=== PATIENT | female | born 1985 | race Caucasian/White ===

== ENCOUNTER 2022-05-29 02:59 | Emergency (ER) | payer MEDICAID, MEDICARE, OTHER ==
[~2022-05-29] VITALS: Ht 172.7 cm; Wt 131.0 kg
--- NOTE | 2022-05-29 03:10 | ED Integumentary General ---
General Stated Complaint: BITE ON LOWER BACK History of Present Illness Date Seen by Provider: May 29, 2022 Time Seen by Provider: 03:10 Initial Comments Patient is here with complaints of possible bites to her lower back. Patient feels that the area is painful and mildly swollen with a burning sensation. Patient showed me a photograph on her phone on how the lesion looked in the morning. In the picture lesion is vesicular in nature. Patient states she broke open all the vesicles and now has burning pain in that area which was hindering her sleep. Denies fever and chills, recent URI. Patient has a history of chickenpox when she was younger. Allergies and Home Medications Patient Home Medication List Home Medication List Reviewed: Yes Review of Systems Review of Systems Constitutional: no symptoms reported EENTM: no symptoms reported Respiratory: no symptoms reported Cardiovascular: no symptoms reported Gastrointestinal: no symptoms reported Genitourinary: no symptoms reported Musculoskeletal: no symptoms reported Skin: see HPI, lesions Psychiatric/Neurological: No Symptoms Reported Endocrine: No Symptoms Reported Physical Exam Vital Signs Capillary Refill : General Appearance: WD/WN, no apparent distress HEENT: PERRL/EOMI, normal ENT inspection Neck: non-tender, full range of motion, supple Cardiovascular: regular rate, rhythm Respiratory: lungs clear Extremities: normal range of motion Neurologic/Psychiatric: 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 Rash on the right side of the lower back within the T11 and T12 dermatome. It is limited to the right side of the spine and not crossing the midline. Patient showed a picture of hyperlipidemia morning and the rash was vesicular in nature, classic for shingles. However patient broke open all the vesicles and now the skin is open where the denuded vesicles have been) Lymphatic: no adenopathy Departure Impression Primary Impression: Herpes zoster Qualified Codes: B02.9 - Zoster without complications Disposition: 01 HOME, SELF-CARE Condition: Stable Departure-Patient Inst. Referrals: NO,LOCAL PHYSICIAN (PCP) Primary Care Physician Patient Instructions: Shingles (DC) Add. Discharge Instructions: - Advised ibuprofen for pain - Follow up with PCP as needed -Prescription for valacyclovir 1 g every 8 hours for 7 days, and acyclovir 5% cream -Contagious until lesions scab over -Follow-up with PCP within the next 7 days Scripts Acyclovir (Acyclovir) 5 % Oint...g. 15 GM TP TID for 7 Days, #1 UNIT Prov: EHSAN MEDINA MD 05/29/22 Valacyclovir HCl (Valacyclovir) 1,000 Mg Tablet 1000 MG PO Q8H for 7 Days, #21 TAB Prov: EHSAN MEDINA MD 05/29/22 EHSAN MEDINA MD May 29, 2022 03:10
[2022-05-29] MEDS ORDERED: VALA10007 PO (03:36)
[2022-05-29] MEDS ORDERED: ACYC15OI6 TP (03:36)
[2022-05-29 03:45] VITALS: BP 148/93
== END 2022-05-29 03:45 | disposition home or self-care (01) ==
LOC: ER 03:05
DX: B02.9 Zoster without complications (principal); Z28.310 Unvaccinated for COVID-19
CPT/HCPCS: 99281

== ENCOUNTER 2022-07-05 10:40 | Observation (INO) | payer MEDICARE ==
[~2022-07-05] VITALS: Ht 172.7 cm; Wt 142.4 kg
[~2022-07-05 10:40] MED LIST: ACYC15OI6 TP; VALA10007 PO
[2022-07-05] MEDS ORDERED: NS IV 1000 ML 1,000 ML IV STA (10:54)
[2022-07-05 11:08] LABS: BASOPHILS # (AUTO) 0.1 10^3/uL (0.0-0.1); BASOPHILS % (AUTO) 1 % (0-10); EOSINOPHILS # (AUTO) 0.2 10^3/uL (0.0-0.3); EOSINOPHILS % (AUTO) 3 % (0-10); HEMATOCRIT 41 % (35-52); HEMOGLOBIN 14.3 g/dL (11.5-16.0); LYMPHOCYTES # (AUTO) 2.1 10^3/uL (1.0-4.0); LYMPHOCYTES % (AUTO) 30 % (12-44); MEAN CORPUSCULAR HEMOGLOBIN 30 pg (25-34); MEAN CORPUSCULAR HGB CONC 35 g/dL (32-36); MEAN CORPUSCULAR VOLUME 84 fL (80-99); MEAN PLATELET VOLUME 9.6 fL (9.0-12.2); MONOCYTES # (AUTO) 0.5 10^3/uL (0.0-1.0); MONOCYTES % (AUTO) 7 % (0-12); NEUTROPHILS % (AUTO) 58 % (42-75); PLATELET COUNT 308 10^3/uL (130-400); WHITE BLOOD COUNT 6.9 10^3/uL (4.3-11.0)
[2022-07-05 11:19] LABS: ALBUMIN 3.5 GM/DL (3.2-4.5); POTASSIUM 4.4 MMOL/L (3.6-5.0)
[2022-07-05 11:20] LABS: CALCIUM 9.2 MG/DL (8.5-10.1)
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
[2022-07-05 11:22] LABS: TOTAL PROTEIN 7.1 GM/DL (6.4-8.2)
[2022-07-05 11:24] LABS: BILIRUBIN,TOTAL 0.6 MG/DL (0.1-1.0)
[2022-07-05 11:25] LABS: CREATININE SERUM 1.24 MG/DL (0.60-1.30)
[2022-07-05 11:57] LABS: BILIRUBIN,URINE NEGATIVE (NEGATIVE); CLARITY,URINE SL CLOUDY; COLOR,URINE YELLOW; GLUCOSE, URINE (UA) 3+ (NEGATIVE); KETONES,URINE NEGATIVE (NEGATIVE); LEUKOCYTE ESTERASE ,URINE NEGATIVE (NEGATIVE); NITRITE,URINE NEGATIVE (NEGATIVE); PH,URINE 5.5 (5-9); PROTEIN,URINE TRACE (NEGATIVE)
[2022-07-05 12:19] LABS: AMORPHOUS SEDIMENT,UR RARE AMOR URATES /LPF; BACTERIA,URINE FEW /HPF; RBC,URINE RARE /HPF; WBC,URINE RARE /HPF; YEAST,URINE FEW /HPF
[2022-07-05] MEDS ORDERED: diphenhydrAMINE 25 MG TAB (BENADRYL) PO PRN (12:45)
[2022-07-05] MEDS ORDERED: diphenhydrAMINE 50 MG/ML INJ (BENADRYL) IVP PRN (12:45)
[2022-07-05] MEDS ORDERED: ANTACID SUSP 30 ML UDC (MYLANTA) PO PRN (12:45)
[2022-07-05] MEDS ORDERED: MILK OF MAGNESIA 400 MG/5 ML 30 ML UDC PO PRN (12:45)
[2022-07-05] MEDS ORDERED: NS IV 500 ML 500 ML IV PRN (12:45)
[2022-07-05] MEDS ORDERED: LACTULOSE SYRUP 10GM/15ML (ENULOSE) 30ML UDC PO PRN (12:45)
[2022-07-05] MEDS ORDERED: MELATONIN 3 MG TABLET PO PRN (12:45)
[2022-07-05] MEDS ORDERED: ONDANSETRON 4 MG/2 ML (SDV) Z0FRAN IV PRN (12:45)
[2022-07-05] MEDS ORDERED: BISACODYL 10 MG SUPP (DULCOLAX) PR PRN (12:45)
[2022-07-05] MEDS ORDERED: ONDANSETRON 4 MG (ZOFRAN) ORAL DISSOLVE TAB PO PRN (12:45)
[2022-07-05] MEDS ORDERED: ACETAMINOPHEN 325 MG TABLET PO PRN (12:45)
[2022-07-05] MEDS ORDERED: polyethylene glycoL POWDER 17 GM (MIRALAX) PACK PO PRN (12:45)
[2022-07-05] MEDS ORDERED: CALCIUM CARBONATE 500 MG (TUMS) TAB.CHEW PO PRN (12:45)
[2022-07-05 12:57] VITALS: BP 169/98
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
[2022-07-05] MEDS: inSUlin ASPART (NovoLOG) 1 UNIT/0.01 ML (CHARGE PER UNIT) SC SCH ×4 (14:15→20:06)
[2022-07-05] MEDS ORDERED: HYDR-3820 PO (14:53)
[2022-07-05] MEDS ORDERED: DULA0.75 SQ (14:53)
[2022-07-05] MEDS ORDERED: CARB15DR OP (14:53)
[2022-07-05] MEDS ORDERED: LOSA100T57 PO (14:53)
[2022-07-05] MEDS ORDERED: TOPI200T8 PO (14:53)
[2022-07-05] MEDS ORDERED: ROSU40TA23 PO (14:53)
[2022-07-05] MEDS ORDERED: BUSP7.5T5 PO (14:53)
[2022-07-05] MEDS ORDERED: ERGO1250 PO (14:53)
[2022-07-05] MEDS ORDERED: EMPA1TAB21 PO (14:53)
[2022-07-05 15:16] VITALS: BP 165/81
[2022-07-05] MEDS ORDERED: EMPAGLIFLOZIN 10 MG TABLET (JARDIANCE) PO ONE (17:15)
[2022-07-05] MEDS ORDERED: amLODIPine 10 MG (NORVASC) TAB PO ONE (17:30)
[2022-07-05] MEDS ORDERED: busPIRone 15 MG (BUSPAR) TABLET PO PRN (17:45)
[2022-07-05] MEDS: metFORMIN 500 MG (GLUCOPHAGE) TAB PO SCH (17:58)
[2022-07-05 19:55] VITALS: BP 173/103
[2022-07-05] MEDS: SENNOSIDES 8.6 MG (SENOKOT) TAB PO SCH (20:06)
[2022-07-05] MEDS: DOCUSATE SODIUM 100 MG (COLACE) CAP PO SCH (20:06)
[2022-07-05] MEDS ORDERED: ROSUVASTATIN 20 MG (CRESTOR) TABLET PO SCH (21:00)
[2022-07-05] MEDS ORDERED: LOSARTAN 100 MG (COZAAR) TABLET PO SCH (21:00)
[2022-07-05] MEDS ORDERED: toPIRamate 100 MG (TOPAMAX) TAB PO SCH (21:00)
[2022-07-06] MEDS ORDERED: KCL 20 MEQ TAB (K-DUR) PO SCH (06:00)
[2022-07-06] MEDS: inSUlin ASPART (NovoLOG) 1 UNIT/0.01 ML (CHARGE PER UNIT) SC SCH ×2 (06:00→11:47)
[2022-07-06] MEDS ORDERED: POTASSIUM BICARB 20 MEQ (EFFER-K) TABLET PO SCH (06:00)
[2022-07-06] MEDS: metFORMIN 500 MG (GLUCOPHAGE) TAB PO SCH (06:00)
[2022-07-06] MEDS ORDERED: POTASSIUM CL 10MEQ/50ML IVPB 50 ML IV SCH (06:00)
[2022-07-06] MEDS ORDERED: MAGNESIUM 1 GM/100 ML IVPB 100 ML IV SCH (06:00)
[2022-07-06 07:09] LABS: CALCIUM 9.3 MG/DL (8.5-10.1); CREATININE SERUM 0.91 MG/DL (0.60-1.30)
[2022-07-06] MEDS: MAGNESIUM 1 GM/100 ML IVPB 100 ML IV SCH ×4 (07:50→10:11)
[2022-07-06 08:01] VITALS: BP 131/80
[2022-07-06] MEDS: DOCUSATE SODIUM 100 MG (COLACE) CAP PO SCH (08:29)
[2022-07-06] MEDS: SENNOSIDES 8.6 MG (SENOKOT) TAB PO SCH (08:29)
[2022-07-06] MEDS ORDERED: amLODIPine 10 MG (NORVASC) TAB PO SCH (09:00)
[2022-07-06] MEDS ORDERED: EMPAGLIFLOZIN 10 MG TABLET (JARDIANCE) PO SCH (09:00)
[2022-07-06 11:10] VITALS: BP 144/98
[2022-07-06] MEDS ORDERED: LINA145C PO (12:38)
[2022-07-06] MEDS ORDERED: INSU100I10 SQ (12:38)
[2022-07-06] MEDS ORDERED: LOSA100T57 PO (12:38)
[2022-07-06] MEDS ORDERED: ROSU40TA23 PO (12:38)
[2022-07-06] MEDS ORDERED: DULA0.75 SQ (12:38)
[2022-07-06] MEDS ORDERED: EMPA1TAB21 PO (12:38)
[2022-07-06] MEDS ORDERED: AMLO-251 PO (12:38)
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
[2022-07-06 15:20] VITALS: BP 144/98
== END 2022-07-06 15:00 | disposition home or self-care (01) ==
LOC: EDUNIT# 10:40 → ER 10:43 → 4TH 12:34
PROVIDERS: ADMIT Internal Medicine; ATTEND Internal Medicine
DX: E11.65 Type 2 diabetes mellitus with hyperglycemia (principal); I10 Essential (primary) hypertension; E78.5 Hyperlipidemia, unspecified; E66.01 Morbid (severe) obesity due to excess calories; F41.9 Anxiety disorder, unspecified; Z68.42 Body mass index [BMI] 45.0-49.9, adult; Z79.899 Other long term (current) drug therapy; Z79.4 Long term (current) use of insulin; Z79.84 Long term (current) use of oral hypoglycemic drugs
CPT/HCPCS: 80048; 80053; 81000; 82010; 82550; 82947 ×2; 83036; 83735; 84703; 85025; 87077; 87088; 96375; 96376; 99282; G0378; 36415